=== PATIENT | female | born 1960 | race Caucasian/White ===

== ENCOUNTER 2017-03-21 07:00 | Emergency (ER) | payer BC, OTHER ==
--- NOTE | 2017-03-21 07:17 | EDM.PDOC ---
ED HPI GENERAL MEDICAL PROBLEM - General Chief Complaint: Abdominal Pain Stated Complaint: ABDOMINAL AND BACK PAIN Time Seen by Provider: 03/21/17 07:15 - History of Present Illness INITIAL COMMENTS - FREE TEXT/NARRATIVE: 56-year-old female presents to emergency room with abdominal pain. This pain started last night after eating pizza the pain seems to be in the right upper quadrant. The patient has about a 2 year history of intermittent symptoms usually triggered after eating. Advil did make worse in the past however she has not used Advil in a while. Patient has some nausea this morning no vomiting. This pain is not associated with chest pain or chest pressure no breathing difficulties or shortness of breath. The patient has not had any reflux. Patient denies any black or tarry stools. Patient has some low back pain she thinks this is secondary to shoveling out the chicken house. Past medical history is significant for hypertension. She has had C-sections the past no other abdominal surgeries. She takes lisinopril denies allergies. Bilateral Upper Abdomen Pain Score (Numeric/FACES): 8 - Related Data Allergies Allergy/AdvReac Type Severity Reaction Status Date / Time No Known Allergies Allergy Verified 03/21/17 07:20 Home Meds: Home Meds Acetaminophen/HYDROcodone [Hudson 325-5 MG] 1 - 2 tab PO Q6H PRN #30 tablet 03/21 [Rx] Lisinopril [Prinivil] 10 mg PO DAILY 03/21/17 [History] Ondansetron [Zofran ODT] 4 mg PO Q6H PRN #10 tab.dis 03/21/17 [Rx] PHENobarb/Hyoscy/Atropine/Scop [ Tablet] 16.2 mg PO Q6H PRN #10 tablet 03/21/17 [Rx] ED ROS GENERAL - Review of Systems Review Of Systems: See Below Constitutional: Reports: No Symptoms. Denies: Fever, Chills HEENT: Reports: No Symptoms Respiratory: Reports: No Symptoms Cardiovascular: Reports: No Symptoms GI/Abdominal: Reports: Abdominal Pain, Nausea. Denies: Black Stool, Constipation, Diarrhea, Hematochezia, Melena, Vomiting : Reports: No Symptoms. Denies: Dysuria, Frequency Musculoskeletal: Reports: Back Pain Neurological: Reports: No Symptoms ED EXAM, GI/ABD - Physical Exam Exam: See Below Exam Limited By: No Limitations General Appearance: Alert, No Apparent Distress Head: Atraumatic, Normocephalic Neck: Normal Inspection, Supple, Non-Tender, Full Range of Motion Respiratory/Chest: No Respiratory Distress, Lungs Clear, Normal Breath Sounds Cardiovascular: Regular Rate, Rhythm, No Edema, No Murmur GI/Abdominal Exam: Normal Bowel Sounds, Soft, Tender (RUQ tenderness, less epigastric, no other tenderness noted.), Other. No: Guarding, Rigid, Rebound Course - Vital Signs Last Recorded V/S: Last Vital Signs Temp 36.9 C 03/21/17 07:15 Pulse 75 03/21/17 07:15 Resp 15 03/21/17 07:15 BP 171/82 H 03/21/17 07:15 Pulse Ox 98 03/21/17 07:15 - Orders/Labs/Meds Orders: Active Orders 24 hr Category Date Time Status EKG Documentation Completion [RC] STAT Care 03/21/17 07:36 Active Lactated Ringers [Ringers, Lactated] 1,000 ml Med 03/21/17 08:30 Active IV ASDIRECTED Medication Orders Lactated Ringer's (Ringers, Lactated) 1,000 mls @ 125 mls/hr IV ASDIRECTED VANESA Last Admin: 03/21/17 08:39 Dose: 125 mls/hr Labs: Laboratory Tests 03/21/17 03/21/17 03/21/17 Range/Units 08:15 08:15 08:15 WBC 7.38 (3.98-10.04) K/mm3 RBC 4.55 (3.98-5.22) M/mm3 Hgb 13.7 (11.2-15.7) gm/L Hct 40.2 (34.1-44.9) % MCV 88.4 (79.4-94.8) fl MCH 30.1 (25.6-32.2) pg MCHC 34.1 (32.2-35.5) g/dl RDW Std Deviation 39.7 (36.4-46.3) fL Plt Count 234 (182-369) K/mm3 MPV 10.5 (9.4-12.3) fl Neutrophils % (Manual) 79 H (40-60) % Band Neutrophils % 1 (0-10) % Lymphocytes % (Manual) 15 L (20-40) % Atypical Lymphs % 0 % Monocytes % (Manual) 5 (2-10) % Eosinophils % (Manual) 0 L (0.7-5.8) % Basophils % (Manual) 0 L (0.1-1.2) Platelet Estimate Adequate RBC Morph Comment Normal Sodium 140 (136-145) mEq/L Potassium 4.0 (3.5-5.1) mEq/L Chloride 106 (98-107) mEq/L Carbon Dioxide 27 (21-32) mEq/L Anion Gap 11.0 (5-15) BUN 11 (7-18) mg/dL Creatinine 0.9 (0.55-1.02) mg/dL Est Cr Clr Drug Dosing 56.52 mL/min Estimated GFR (MDRD) > 60 (>60) mL/min BUN/Creatinine Ratio 12.2 L (14-18) Glucose 117 H (74-106) mg/dL Calcium 8.9 (8.5-10.1) mg/dL Total Bilirubin 0.3 (0.2-1.0) mg/dL Direct Bilirubin 0.10 (0.0-0.2) mg/dl Indirect Bilirubin 0.20 AST 24 (15-37) U/L ALT 41 (14-59) U/L Alkaline Phosphatase 84 (46-116) U/L Total Protein 7.7 (6.4-8.2) g/dl Albumin 3.9 (3.4-5.0) g/dl Globulin 3.8 gm/dL Albumin/Globulin Ratio 1.0 (1-2) Lipase 146 (73-393) U/L Meds: Medications Generic Name Dose Route Start Last Admin Trade Name Freq PRN Reason Stop Dose Admin Lactated Ringer's 1,000 mls @ 125 mls/hr 03/21/17 08:30 03/21/17 08:39 Ringers, Lactated IV 125 mls/hr ASDIRECTED VANESA Administration Discontinued Medications Generic Name Dose Route Start Last Admin Trade Name Freq PRN Reason Stop Dose Admin Hydrocodone Bitart/Acetaminophen 1 tab 03/21/17 09:39 03/21/17 09:46 Hudson 325-5 Mg PO 03/21/17 09:40 1 tab ONETIME ONE Administration Fentanyl 50 mcg 03/21/17 08:17 03/21/17 08:38 Sublimaze IVPUSH 07/27/17 08:18 50 mcg ONETIME ONE Administration Ondansetron HCl 4 mg 03/21/17 08:17 03/21/17 08:34 Zofran IVPUSH 03/21/17 08:18 4 mg ONETIME ONE Administration - Re-Assessments/Exams Free Text/Narrative Re-Assessment/Exam: 03/21/17 08:18 Patient had her ultrasound done she has developed worsening pain we'll give her 50 g of fentanyl start an IV and Zofran. Labs just obtained from the patient will await the results of these. 03/21/17 09:50 Patient had some relief from the fentanyl but the pain started to return we'll give her some Hudson her labs are reviewed her white count is 7380 79% segs 1% band 15% lymphs chemistries are normal including direct bilirubin total bilirubin transaminases and lipase. Case was reviewed with Dr. Elias who can follow up with the patient on Saturday the patient's regular physician, Dr. Mark did call and will see the patient in follow-up at 2:00 tomorrow afternoon. Departure - Departure Time of Disposition: 09:51 Disposition: Home, Self-Care 01 Clinical Impression: Right upper quadrant pain, Cholelithiasis - Discharge Information Prescriptions: Acetaminophen/HYDROcodone [Hudson 325-5 MG] 1 - 2 tab PO Q6H PRN #30 tablet PRN Reason: Abdominal Pain Ondansetron [Zofran ODT] 4 mg PO Q6H PRN #10 tab.dis PRN Reason: Nausea/Vomiting PHENobarb/Hyoscy/Atropine/Scop [ Tablet] 16.2 mg PO Q6H PRN #10 tablet PRN Reason: Abdominal Pain Referrals: Radha Joshua PA-C [Primary Care Provider] - Mario Chaudhary MD [Physician] - Aris Elias MD [Physician] - Forms: ED Department Discharge Additional Instructions: Return to emergency room with any questions problems worsening symptoms. Return immediately with worsening abdominal pain and the development of fever chills. Return with symptoms not controlled with your medication. Follow up with Dr. Mark tomorrow at 2:00. Follow-up with general surgery. They can see you on Saturday. You been started on 3 medications. The first one is it is to be used for a spasm sensation on an as-needed basis one tablet every 6 hours. The second is Zofran to be used on an as-needed basis for nausea or vomiting one every 6 hours. The third medication is Hudson this is a pain medication containing hydrocodone and Tylenol. Take one or 2 every 6 hours as needed for pain. Allow 12 hours after using this medication before driving or returning to work. - My Orders Last 24 Hours: My Active Orders 03/21/17 07:36 EKG Documentation Completion [RC] STAT 03/21/17 08:30 Lactated Ringers [Ringers, Lactated] 1,000 ml IV ASDIRECTED - Assessment/Plan Last 24 Hours: My Active Orders 03/21/17 07:36 EKG Documentation Completion [RC] STAT 03/21/17 08:30 Lactated Ringers [Ringers, Lactated] 1,000 ml IV ASDIRECTED
[2017-03-21] MEDS ORDERED: Ondansetron 4 MG/2 ML SDV IVPUSH ONE (08:17)
[2017-03-21] MEDS ORDERED: fentaNYL 100 MCG/2 ML SDV IVPUSH ONE (08:17)
[2017-03-21] MEDS ORDERED: Lactated Ringers 1,000 ML IV SCH (08:30)
--- NOTE | 2017-03-21 08:31 | US ---
Limited abdominal ultrasound: Multiple real-time images of the upper right abdomen were obtained. Visualized portions of the pancreas are within normal limits. Liver shows no focal abnormality. Gallstones are seen within the gallbladder. Gallbladder wall shows areas of thickening. No biliary duct dilatation is seen. Right kidney shows no hydronephrosis or mass. Right kidney measures 9.8 cm. Impression: 1. Gallstones. Gallbladder wall thickening. Findings could represent chronic or acute cholecystitis. No biliary duct dilatation is seen. 2. No additional abnormality identified on right upper quadrant abdominal ultrasound. Diagnostic code #3
[2017-03-21] MEDS ORDERED: Acetaminophen/HYDROcodone 325-5 MG Tab PO ONE (09:39)
[2017-03-21 09:54] VITALS: BP 155/78
== END 2017-03-21 10:18 | disposition home or self-care (01) ==
LOC: JD.ED 07:00
DX: K80.20 Calculus of gallbladder without cholecystitis without obstruction (principal); I10 Essential (primary) hypertension; Z79.899 Other long term (current) drug therapy
CPT/HCPCS: 36415; 76705; 80048; 80076; 83690; 85025; 93005; 96361; 96374; 96375; 99285; A9270; J2405; J3010; J7120; 99284